=== PATIENT | female | born 1995 | race Caucasian/White ===

== ENCOUNTER 2019-05-28 13:24 | Emergency (ER) | payer OTHER ==
[2019-05-28 13:45] VITALS: RESP 18
[2019-05-28] MEDS ORDERED: SODIUM CHLORIDE 0.9% 1,000 ML IV STA (13:47)
--- NOTE | 2019-05-28 14:02 | ED ---
Abdominal Pain HPI - General Chief Complaint: Abdominal Pain Stated Complaint: , bleeding Time Seen by Provider: 05/28/19 13:47 Source: patient Mode of arrival: ambulatory Limitations: no limitations - History of Present Illness Initial Comments: 23-year-old female with history of IV drug use, hepatitis C present today for chief complaint of vaginal bleeding and . Patient states that about 4 weeks ago she had a negative test however within the past 1-2 weeks she has had positive urine test. Patient states she has had intermittent bleeding and is unsure of her last period. Patient states she believes she is less than 1 month . Patient states the past 2 days she has had bleeding as though she is having a. She states sometimes his light and other times is heavier. Patient states that she has some mild lower pelvic cramping denies any severe abdominal pain lightheadedness dizziness or sensation of presyncope or syncopa episodes. She denies conservative STI. Denies vaginal bleeding discharge or odors. Patient denies dysuria urgency frequency. Remaining review systems negative. Upon arrival patient appears well signs acute distress vital signs within acceptable limits. Patient has established OB care in [place], [place]. - Related Data Home Medications Medication Instructions Recorded Confirmed Acetaminophen Tab [Tylenol Tab] 650 mg PO Q4H PRN 05/28/19 05/28/19 Calcium Carbonate [Tums] 1,000 mg PO Q4H PRN 05/28/19 05/28/19 Docusate [Colace] 100 mg PO QID 05/28/19 05/28/19 Ondansetron Odt [Zofran Odt] 8 mg PO Q6H PRN 05/28/19 05/28/19 Pyp-Ygwj-Gzzga Acid 1 cap PO HS 05/28/19 05/28/19 [-U Capsule (formulary)] Allergies Allergy/AdvReac Type Severity Reaction Status Date / Time No Known Allergies Allergy Verified 05/28/19 14:00 Review of Systems ROS Statement: Those systems with pertinent positive or pertinent negative responses have been documented in the HPI. ROS Other: All systems not noted in ROS Statement are negative. Past Medical History Past Medical History: No Reported History History of Any Multi-Drug Resistant Organisms: None Reported Past Surgical History: Section, Orthopedic Surgery Additional Past Surgical History / Comment(s): rt hand Past Psychological History: Depression Smoking Status: Former smoker Past Alcohol Use History: None Reported Past Drug Use History: Heroin General Exam - General Exam Comments Initial Comments: General: The patient is awake and alert, in no distress, and does not appear acutely ill. Eye: Pupils are equal, round and reactive to light, extra-ocular movements are intact. No nystagmus. There is normal conjunctiva bilaterally. No signs of icterus. Cardiovascular: There is a regular rate and rhythm. No murmur, rub or gallop is appreciated. Respiratory: Lungs are clear to auscultation, respirations are non-labored, breath sounds are equal. No wheezes, stridor, rales, or rhonchi. Gastrointestinal: Soft, non-distended, non-tender abdomen without masses or organomegaly noted. There is no rebound or guarding present. Bowel sounds are unremarkable. Pelvic: Patient has no external genitalia lesions. Patient has scant amount of blood in the vault. Vaginal close is pink well rugated. Cervical os closed. NO cervical motion or adnexal tenderness. Musculoskeletal: Normal ROM, no tenderness. Strength 5/5. Sensation intact. Pulses equal bilaterally 2+. Neurological: A&O x 3. CN II-XII intact, There are no obvious motor or sensory deficits. Coordination appears grossly intact. Speech is normal. Skin: Skin is warm and dry and no rashes or lesions are noted. Psychiatric: Cooperative, appropriate mood & affect, normal judgment. Limitations: no limitations Course Vital Signs 05/28/19 05/28/19 13:42 17:00 Temperature 97.8 F 98.0 F Pulse Rate 78 61 Respiratory 18 18 Rate Blood Pressure 106/65 116/81 O2 Sat by Pulse 100 97 Oximetry Medical Decision Making - Medical Decision Making 23-year-old female presents for vaginal bleeding and . Patient states she has had a positive test within the last 1-2 weeks. Unsure of her last period . Patient denies any significant pain states more mild cramping denies it being unilateral. Patient denies any heavy uncontrolled vaginal bleeding. Patient denies concern for STI. Cultures are pending. Pelvic exam revealed no adnexal or cervical motion tenderness with a scant amount of blood in the vaginal vault. Cervical was closed. Ultrasound was obtained revealing . Blood type A+. HCG quantitative 949. US no IUP, consistent with IUP. NO evidence of free fluid in pelvic. Cannot r/o ectopic however low suspicion at this time, favored diagnosis misscarriage/early . Dr. Nelson consulted by attending Dr. West after discussing case who will see patient on Saturday, recommened HCG repeated in 48 hours. Patient provided paper prescription. Return parameters as well as discussion about ectopic was discussed with patient who verbalized understanding. Patient was discharged appearing well agreeable to return parameters as well as outpatient follow-up - Lab Data Result diagrams: 05/28/19 15:35 05/28/19 15:35 Lab Results 05/28/19 05/28/19 05/28/19 Range/Units 14:25 14:25 14:25 WBC (3.8-10.6) k/uL RBC (3.80-5.40) m/uL Hgb (11.4-16.0) gm/dL Hct (34.0-46.0) % MCV (80.0-100.0) fL MCH (25.0-35.0) pg MCHC (31.0-37.0) g/dL RDW (11.5-15.5) % Plt Count (150-450) k/uL Neutrophils % % Lymphocytes % % Monocytes % % Eosinophils % % Basophils % % Neutrophils # (1.3-7.7) k/uL Lymphocytes # (1.0-4.8) k/uL Monocytes # (0-1.0) k/uL Eosinophils # (0-0.7) k/uL Basophils # (0-0.2) k/uL Hypochromasia Sodium (137-145) mmol/L Potassium (3.5-5.1) mmol/L Chloride (98-107) mmol/L Carbon Dioxide (22-30) mmol/L Anion Gap mmol/L BUN (7-17) mg/dL Creatinine (0.52-1.04) mg/dL Est GFR (CKD-EPI)AfAm (>60 ml/min/1.73 sqM) Est GFR (CKD-EPI)NonAf (>60 ml/min/1.73 sqM) Glucose (74-99) mg/dL Calcium (8.4-10.2) mg/dL Total Bilirubin (0.2-1.3) mg/dL AST (14-36) U/L ALT (9-52) U/L Alkaline Phosphatase (38-126) U/L Total Protein (6.3-8.2) g/dL Albumin (3.5-5.0) g/dL HCG, Quant mIU/mL Urine Color Yellow Urine Appearance Cloudy H (Clear) Urine pH 7.5 (5.0-8.0) Ur Specific [place] 1.023 (1.001-1.035) Urine Protein 1+ H (Negative) Urine Glucose (UA) Negative (Negative) Urine Ketones Trace H (Negative) Urine Blood Moderate H (Negative) Urine Nitrite Negative (Negative) Urine Bilirubin Negative (Negative) Urine Urobilinogen <2.0 (<2.0) mg/dL Ur Leukocyte Esterase Small H (Negative) Urine RBC 10 H (0-5) /hpf Urine WBC 16 H (0-5) /hpf Ur Squamous Epith Cells 9 H (0-4) /hpf Urine Bacteria Rare H (None) /hpf Urine Mucus Few H (None) /hpf Urine HCG, Qual Detected (Not Detectd) Trichomonas Ag (Rapid) Negative (Negative) Blood Type Blood Type Confirm Blood Type Recheck Antibody Screen Spec Expiration Date 05/28/19 05/28/19 05/28/19 Range/Units 15:35 15:35 15:35 WBC 10.0 (3.8-10.6) k/uL RBC 4.53 (3.80-5.40) m/uL Hgb 12.4 (11.4-16.0) gm/dL Hct 38.9 (34.0-46.0) % MCV 85.8 (80.0-100.0) fL MCH 27.4 (25.0-35.0) pg MCHC 31.9 (31.0-37.0) g/dL RDW 13.5 (11.5-15.5) % Plt Count 391 (150-450) k/uL Neutrophils % 69 % Lymphocytes % 24 % Monocytes % 3 % Eosinophils % 2 % Basophils % 0 % Neutrophils # 6.9 (1.3-7.7) k/uL Lymphocytes # 2.4 (1.0-4.8) k/uL Monocytes # 0.3 (0-1.0) k/uL Eosinophils # 0.2 (0-0.7) k/uL Basophils # 0.0 (0-0.2) k/uL Hypochromasia Slight Sodium 140 (137-145) mmol/L Potassium 4.4 (3.5-5.1) mmol/L Chloride 102 (98-107) mmol/L Carbon Dioxide 28 (22-30) mmol/L Anion Gap 10 mmol/L BUN 11 (7-17) mg/dL Creatinine 0.67 (0.52-1.04) mg/dL Est GFR (CKD-EPI)AfAm >90 (>60 ml/min/1.73 sqM) Est GFR (CKD-EPI)NonAf >90 (>60 ml/min/1.73 sqM) Glucose 101 H (74-99) mg/dL Calcium 10.0 (8.4-10.2) mg/dL Total Bilirubin 0.3 (0.2-1.3) mg/dL AST 18 (14-36) U/L ALT 17 (9-52) U/L Alkaline Phosphatase 110 (38-126) U/L Total Protein 8.6 H (6.3-8.2) g/dL Albumin 4.4 (3.5-5.0) g/dL HCG, Quant 929.2 mIU/mL Urine Color Urine Appearance (Clear) Urine pH (5.0-8.0) Ur Specific [place] (1.001-1.035) Urine Protein (Negative) Urine Glucose (UA) (Negative) Urine Ketones (Negative) Urine Blood (Negative) Urine Nitrite (Negative) Urine Bilirubin (Negative) Urine Urobilinogen (<2.0) mg/dL Ur Leukocyte Esterase (Negative) Urine RBC (0-5) /hpf Urine WBC (0-5) /hpf Ur Squamous Epith Cells (0-4) /hpf Urine Bacteria (None) /hpf Urine Mucus (None) /hpf Urine HCG, Qual (Not Detectd) Trichomonas Ag (Rapid) (Negative) Blood Type A Positive Blood Type Confirm Blood Type Recheck CABO Indicated Antibody Screen NEGATIVE Spec Expiration Date 05/31/2019 - 233405/28/19 Range/Units 15:40 WBC (3.8-10.6) k/uL RBC (3.80-5.40) m/uL Hgb (11.4-16.0) gm/dL Hct (34.0-46.0) % MCV (80.0-100.0) fL MCH (25.0-35.0) pg MCHC (31.0-37.0) g/dL RDW (11.5-15.5) % Plt Count (150-450) k/uL Neutrophils % % Lymphocytes % % Monocytes % % Eosinophils % % Basophils % % Neutrophils # (1.3-7.7) k/uL Lymphocytes # (1.0-4.8) k/uL Monocytes # (0-1.0) k/uL Eosinophils # (0-0.7) k/uL Basophils # (0-0.2) k/uL Hypochromasia Sodium (137-145) mmol/L Potassium (3.5-5.1) mmol/L Chloride (98-107) mmol/L Carbon Dioxide (22-30) mmol/L Anion Gap mmol/L BUN (7-17) mg/dL Creatinine (0.52-1.04) mg/dL Est GFR (CKD-EPI)AfAm (>60 ml/min/1.73 sqM) Est GFR (CKD-EPI)NonAf (>60 ml/min/1.73 sqM) Glucose (74-99) mg/dL Calcium (8.4-10.2) mg/dL Total Bilirubin (0.2-1.3) mg/dL AST (14-36) U/L ALT (9-52) U/L Alkaline Phosphatase (38-126) U/L Total Protein (6.3-8.2) g/dL Albumin (3.5-5.0) g/dL HCG, Quant mIU/mL Urine Color Urine Appearance (Clear) Urine pH (5.0-8.0) Ur Specific [place] (1.001-1.035) Urine Protein (Negative) Urine Glucose (UA) (Negative) Urine Ketones (Negative) Urine Blood (Negative) Urine Nitrite (Negative) Urine Bilirubin (Negative) Urine Urobilinogen (<2.0) mg/dL Ur Leukocyte Esterase (Negative) Urine RBC (0-5) /hpf Urine WBC (0-5) /hpf Ur Squamous Epith Cells (0-4) /hpf Urine Bacteria (None) /hpf Urine Mucus (None) /hpf Urine HCG, Qual (Not Detectd) Trichomonas Ag (Rapid) (Negative) Blood Type Blood Type Confirm A Positive Blood Type Recheck Antibody Screen Spec Expiration Date Disposition Clinical Impression: Early stage of , Threatened Disposition: HOME SELF-CARE Condition: Good Instructions (If sedation given, give patient instructions): Threatened Miscarriage (ED), Abdominal Pain in (ED) Additional Instructions: Please use medication as discussed. Please follow-up with Dr. Nelson on Saturday, repeat beta HCG on Saturday. Please return to emergency room if the symptoms increase or worsen or for any other concerns, increasing abdominal pain and unilateral abdominal pain increasing bleeding increasing pain lightheaded dizziness. Is patient prescribed a controlled substance at d/c from ED?: No Referrals: Nonstaff,Physician [Primary Care Provider] - 1-2 days Sheila Nelson MD [STAFF PHYSICIAN] - 1-2 days Time of Disposition: 16:47
[2019-05-28 14:59] LABS: Appearance,Urine Cloudy (Clear); Bacteria,Urine Rare /hpf; Bilirubin,Urine Negative (Negative); Blood,Urine Moderate (Negative); Color,Urine Yellow; Glucose,Urine (UA) Negative (Negative); Ketones,Urine Trace (Negative); Leukocyte Esterase,Urine Small (Negative); Mucus,Urine Few /hpf; Nitrite,Urine Negative (Negative); PH, Urine 7.5 (5.0-8.0); Protein,Urine 1+ (Negative); RBC,Urine 10 /hpf (0-5); Specific Gravity,Urine 1.023 (1.001-1.035); Squamous Epithelial Cell,Urine 9 /hpf (0-4); Urobilinogen,Urine <2.0 mg/dL (<2.0); WBC,Urine 16 /hpf (0-5)
--- NOTE | 2019-05-28 15:55 | US ---
EXAMINATION TYPE: Transabdominal DATE OF EXAM: 05/28/2019 3:33 PM COMPARISON: NONE CLINICAL HISTORY: bleeding/pain + home preg. bleeding, hx of CSection x 3 EXAM PERFORMED: Transvaginal (TV) and Transabdominal (TA) EXAM MEASUREMENTS: GESTATIONAL AGE / DATING Dates by LMP: (1 weeks/3 days) EDC: 02/22/2020 Dates by Current Scan for: No IUP seen at this time MATERNAL ANATOMY Uterus: 7.5 x 4.6 x 4.2 cm Right Ovary: 3.0 x 1.8 x 1.6 cm Left Ovary: 3.3 x 2.1 x 1.9 cm Post CDS / Adnexa: trace amount seen in cul de sac Presence of free fluid: no Presence of corpus luteal cyst: no GESTATION / SURVEY MSD: No gestational sac visualized IUP: No IUP seen at this time Date of LMP: 05/18/2019, Beta HcG (if available): Not available at this time No GS, YS or CRL visualized. Left ovary only seen transabdominally. In endometrium at ANTHONY region pascale r area, multicystic lesion visualized 1.2 x 1.1 x 0.6 cm without internal vascularity, whi ch may be related to additional areas of continuation of the scar or nabothian cysts. IMPRESSION: No evidence of intrauterine . Based off the patient's last menstrual period of 1 week and 3 days, gestational sac would not be visualized. Correlation with beta-hCG and follow-up ultrasound is recommended. Postsurgical changes of scar with multiple cystic area adjacent to the scar. Atte ntion on follow-up images is recommended.
[2019-05-28 15:58] LABS: Basophils % (A) 0 %; Eosinophils # (A) 0.2 k/uL (0-0.7); Eosinophils % (A) 2 %; HCT 38.9 % (34.0-46.0); HGB 12.4 gm/dL (11.4-16.0); Hypochromasia Slight; Lymphocytes # (A) 2.4 k/uL (1.0-4.8); Lymphocytes % (A) 24 %; MCH 27.4 pg (25.0-35.0); MCHC 31.9 g/dL (31.0-37.0); MCV 85.8 fL (80.0-100.0); Mean Platelet Volume 6.6; Monocytes # (A) 0.3 k/uL (0-1.0); Monocytes % (A) 3 %; Neutrophils # (A) 6.9 k/uL (1.3-7.7); Neutrophils % (A) 69 %; Platelet Count 391 k/uL (150-450); RBC 4.53 m/uL (3.80-5.40); RDW 13.5 % (11.5-15.5)
[2019-05-28 16:05] LABS: ALT 17 U/L (9-52); AST 18 U/L (14-36); African American GFR (CKD) >90 (>60 ml/min/1.73 sqM); Albumin 4.4 g/dL (3.5-5.0); Alkaline Phosphatase 110 U/L (38-126); Anion Gap 10 mmol/L; Blood Urea Nitrogen 11 mg/dL (7-17); Carbon Dioxide 28 mmol/L (22-30); Chloride 102 mmol/L (98-107); Glucose 101 mg/dL (74-99); Potassium 4.4 mmol/L (3.5-5.1); Sodium 140 mmol/L (137-145); Total Bilirubin 0.3 mg/dL (0.2-1.3); Total Protein 8.6 g/dL (6.3-8.2)
[2019-05-28 16:21] LABS: HCG,Quantitative Serum 929.2 mIU/mL
[2019-05-28 17:10] VITALS: BP 116/81; PULSE 61; TEMP 98
[2019-05-29 16:17] LABS: C. trachomatis,PCR Positive (Neg,Equiv); Chlamydia trachomatis Source Vagina
[2019-05-29 16:23] LABS: N. gonorrhoeae,PCR Negative (Neg,Equiv); Neisseria Source Vagina
== END 2019-05-28 17:12 | disposition home or self-care (01) ==
LOC: EC 13:24
DX: O20.0 Threatened abortion (principal); Z3A.00 Weeks of gestation of pregnancy not specified; Z79.899 Other long term (current) drug therapy; Z87.891 Personal history of nicotine dependence
CPT/HCPCS: 36415; 76801; 76817; 80053; 81001; 81025; 84702; 85025; 86850; 86900; 86901; 87070; 87205; 87491; 87591; 87808; 99284